=== PATIENT | male | born 1965 | race Caucasian/White ===

== ENCOUNTER 2017-12-03 11:32 | Emergency (ER) | payer OTHER ==
--- NOTE | 2017-12-03 12:07 | EDPHY ---
H & P Time Seen by Provider: 12/03/17 11:58 HPI/ROS: CHIEF COMPLAINT: Left thumb laceration HISTORY OF PRESENT ILLNESS: 51-year-old [id number] male with up-to- date tetanus, works as a cooking chef, was at work he sustained a laceration to his left thumb distal phalanx. PHYSICAL EXAM (Prior to examination, patient consented to physical exam, hands were washed and my usual and customary physical exam procedures followed) 1) GENERAL: Well-developed, well-nourished, alert and oriented. Appears to be in no acute distress. 2) HEAD: Normocephalic 3) HEENT: sclera anicteric 4) LUNGS: Breathing comfortably. 5) SKIN: The left thumb distal phalanx superficial skin flap with nonviable tissue. 6) MUSCULOSKELETAL: Flexor extensor function at the MCP and IP intact with no deficits. 7) NEUROLOGIC: Full sensation two-point discrimination distally Smoking Status: Never smoked Constitutional: Initial Vital Signs Temperature (C) 36.4 C 12/03/17 11:38 Heart Rate 63 12/03/17 11:38 Respiratory Rate 16 12/03/17 11:38 Blood Pressure 110/79 12/03/17 11:38 O2 Sat (%) 98 12/03/17 11:38 O2 Delivery Mode Room Air Allergies/Adverse Reactions: No Known Allergies Allergy (Unverified 12/03/17 11:37) Home Medications: Medication Instructions Recorded NK [No Known Home Meds] 12/03/17 MDM/Departure - MDM Procedures: Procedure: Laceration repair. I explained the indications, risks and benefits for both laceration repair and anesthetic administration. Verbal consent was obtained from the patient . The laceration on the left thumb was anesthetized using 0.5% bupivicaine without epinephrine digital nerve block. After anesthetic administered the patient was observed for a period of time and had no apparent adverse effects. The wound was cleaned, prepped, draped in normal sterile fashion and explored to its base. No foreign body seen, no foreign bodies palpated. The patient skin flap is nonviable, superficial, was being held in place by approximately 1 mm of tissue. This is further debrided by myself and surgical foam placed by ER design technician resulting in hemostasis. - Depart Disposition: Home, Routine, Self-Care Clinical Impression: Avulsion of skin of thumb Qualifiers: Encounter type: initial encounter Laterality: left Qualified Code(s): S61.002A - Unspecified open wound of left thumb without damage to nail, initial encounter Condition: Good Instructions: Skin Avulsion (ED) Additional Instructions: Return to the ER if you develop redness, swelling, discharge, warmth to the wound, red streaks going up your arm, or any other symptoms that concern you. Referrals: NONE *PRIMARY CARE P,. [Primary Care Provider] - As per Instructions
[2017-12-03 13:37] VITALS: BP 112/80; PULSE 66; RESP 18; TEMP 98.2; O2SAT 95
== END 2017-12-03 13:37 | disposition home or self-care (01) ==
PROC: 3E0T3BZ Introduction of Anesthetic Agent into Peripheral Nerves and Plexi, Percutaneous Approach (ICD-10-PCS; principal; 2017-12-03)
DX: S61.002A Unspecified open wound of left thumb without damage to nail, initial encounter (principal); W26.0XXA Contact with knife, initial encounter; Y92.89 Other specified places as the place of occurrence of the external cause; Y99.0 Civilian activity done for income or pay; Y93.89 Activity, other specified